=== PATIENT | female | born 1970 | race Caucasian/White ===

== ENCOUNTER 2020-12-21 11:28 | Outpatient (CLI) | payer OTHER | END 2020-12-21 23:59 | disposition home or self-care (01) | LOC: LAB 11:28 | PROVIDERS: ATTEND Student in an Organized Health Care Education/Training Program | DX: Z01.812 Encounter for preprocedural laboratory examination (principal); Z20.822 Contact with and (suspected) exposure to COVID-19 | CPT/HCPCS: C9803; U0003 ==

== ENCOUNTER 2020-12-27 12:22 | Day surgery (SDC) | payer OTHER ==
[~2020-12-27 12:22] MED LIST: ANESTHESIA TRAY IN PYXIS 1 EA TRAY MC ONE; BUPIVACAINE 0.5 % PF 150 MG/30 ML VIAL ONE; EPINEPHRINE (1:1000) 1 MG/ML AMPUL ONE
[2020-12-27] MEDS ORDERED: FENTANYL PF 250MCG/5ML AMPUL ONE (13:30)
[2020-12-27] MEDS ORDERED: HYDROMORPHONE INJ 2 MG/ML DISP.SYRIN ONE (13:31)
[2020-12-27] MEDS ORDERED: MIDAZOLAM HCL 2 MG/2ML VIAL ONE (13:31)
[2020-12-27] MEDS ORDERED: BUPIVACAINE 0.25% 75 MG/30 ML VIAL ONE (13:32)
[2020-12-27] MEDS ORDERED: ONDANSETRON HCL/PF 4 MG/2 ML VIAL ONE (18:40)
== END 2020-12-27 19:15 | disposition home or self-care (01) ==
LOC: DS 12:22
PROVIDERS: ATTEND Student in an Organized Health Care Education/Training Program
DX: M25.812 Other specified joint disorders, left shoulder (principal); M65.812 Other synovitis and tenosynovitis, left shoulder; G56.22 Lesion of ulnar nerve, left upper limb; E03.9 Hypothyroidism, unspecified
CPT/HCPCS: 23430; 29823; 64718; 84703; A4217; C1713; J0171; J0690; J1170; J1885; J2250; J2405; J2704; J2765; J3010; J3490 ×3